=== PATIENT | female | born 1970 | race Two or more races ===

== ENCOUNTER 2020-04-01 12:32 | Emergency (ER) | payer BC, OTHER ==
[~2020-04-01] VITALS: Ht 160 cm; Wt 86.2 kg
[2020-04-01 12:38] VITALS: BP 139/83
[2020-04-01 14:18] LABS: Basophils # (auto) 0 10 ^3/uL (0-0.2); Basophils % (auto) 0.2 % (0.0-2.0); Eosinophils # (auto) 0.1 10 ^3/uL (0-0.8); Hematocrit 41.1 % (36.0-46.0); Hemoglobin 13.6 g/dL (12.2-16.2); Lymphocytes # (auto) 2.4 10 ^3/uL (0.4-5.4); Lymphocytes % (auto) 18.8 % (10.0-50.0); Mean Corpuscular Hemoglobin 29.7 pg (28.0-32.0); Mean Corpuscular Hgb Conc. 33.1 g/dL (32.0-36.0); Mean Corpuscular Volume 89.9 fL (80.0-100.0); Monocytes # (auto) 0.6 10 ^3/uL (0-1.3); Monocytes % (auto) 4.4 % (0.0-12.0); Neutrophils # (auto) 9.6 10 ^3/uL (1.6-8.6); Neutrophils % (auto) 75.6 % (37.0-80.0); Nucleated Red Blood Cells % 0.1 %; Platelet Count (auto) 312 10^3/uL (140-450); Red Blood Cells 4.58 10^6/uL (4.0-5.20); Red Cell Distribution Width 13.6 % (11.8-14.3); White Blood Cell 12.7 10^3/uL (4.4-10.8)
[2020-04-01 14:35] LABS: Albumin 4.3 g/dL (3.4-5.0); Calcium 10.5 mg/dL (8.5-10.1); Potassium 3.8 mmol/L (3.5-5.1)
[2020-04-01 14:38] LABS: BUN/Creatinine Ratio 20.5; Bilirubin, Total 0.6 mg/dL (0.2-1.0)
[2020-04-01 14:42] LABS: INR 0.95 (0.9-1.15); Partial Thromboplastin Time 21.7 sec (23.0-31.2)
[2020-04-01 14:43] LABS: Magnesium 2.3 mg/dL (1.6-2.6)
[2020-04-01] MEDS ORDERED: ONDANSETRON ODT 4 MG TAB PO ONE (15:30)
[2020-04-01] MEDS ORDERED: MECLIZINE HCL 25 MG TAB PO ONE (17:45)
== END 2020-04-01 19:04 | disposition home or self-care (01) ==
LOC: ER 12:32
DX: H81.13 Benign paroxysmal vertigo, bilateral (principal)
CPT/HCPCS: 36415; 70450; 71045; 80053; 83735; 83880; 84484; 85025; 85610; 85730; 93005